=== PATIENT | male | born 1990 | race Caucasian/White ===

== ENCOUNTER 2023-01-24 11:17 | Emergency (ER) | payer BC, OTHER ==
[~2023-01-24] VITALS: Ht 185.4 cm; Wt 66.5 kg
[2023-01-24] MEDS ORDERED: IBUPROFEN200 M1 PO (11:33)
[2023-01-24] MEDS ORDERED: IMITREX25 MG PO (11:34)
[2023-01-24] MEDS ORDERED: ONDANSETRON ODT8 MG PO (14:37)
[2023-01-24] MEDS ORDERED: REGLAN10 MG PO (14:37)
== END 2023-01-24 14:55 | disposition home or self-care (01) ==
LOC: ED 11:17
DX: G43.909 Migraine, unspecified, not intractable, without status migrainosus (principal); Z79.899 Other long term (current) drug therapy
CPT/HCPCS: 96361; 96374; 96375; 99283-25; J1100; J1200; J1790; J1885; J2405; J7040

== ENCOUNTER 2024-05-08 13:14 | Emergency (ER) | payer BC, OTHER ==
[~2024-05-08] VITALS: Ht 185.4 cm; Wt 65.2 kg
[~2024-05-08 13:14] MED LIST: IBUPROFEN200 M1 PO; IMITREX25 MG PO; ONDANSETRON ODT8 MG PO; REGLAN10 MG PO
[2024-05-08] MEDS ORDERED: HYDROXYZINE HCL25 MG PO (14:22)
[2024-05-08] MEDS ORDERED: DULOXETINE HCL30 MG PO (14:23)
[2024-05-08] MEDS ORDERED: ondansetron HCL 4 MG/2 ML VIAL IV ONE (15:15)
[2024-05-08] MEDS ORDERED: DEXAMETHASONE SOD PHOS 10 MG/ML VIAL IV ONE (15:15)
[2024-05-08] MEDS ORDERED: SODIUM CHLORIDE 0.9% 1,000 ML IV ONE (15:15)
[2024-05-08] MEDS ORDERED: LORazepam 2 MG/ML VIAL IV ONE (15:15)
[2024-05-08] MEDS ORDERED: diphenhydrAMINE HCL 50 MG/ML VIAL IV ONE (15:15)
[2024-05-08] MEDS ORDERED: KETOROLAC TROMETHAMINE 30 MG/ML VIAL IV ONE (15:15)
[2024-05-08 15:39] LABS: BASOPHILS 0.5 % (0-2); EOSINOPHILS 0.4 % (0-6); HEMATOCRIT 46.2 % (35.0-50.0); HEMOGLOBIN 15.7 g/dL (12.0-18.0); LYMPHOCYTES 30.4 % (24-44); MCHC 33.9 g/dl (30-36); MCV 91.4 fl (81-99); MONOCYTES 10.2 % (0-12); NEUTROPHILS 58.5 % (39-80); PLATELET COUNT 201 K/uL (140-440); RBC 5.05 M/ul (4.3-5.7); RDW 13.2 (10.5-15.0)
[2024-05-08 15:57] LABS: ALBUMIN 4.5 g/dL (3.4-5.0); ALBUMIN/GLOBULIN RATIO 1.18 (1.1-2.4); ANION GAP 9.9 (7-21); BILIRUBIN, TOTAL 0.6 ng/dL (0.2-1.0); BUN/CREATININE RATIO 18.09 (6.0-28.6); CALCIUM 9.5 mg/dL (8.5-10.1); CREATININE, SERUM 1.05 mg/dL (0.70-1.30); POTASSIUM 3.9 mmol/L (3.5-5.1); PROTEIN, TOTAL 8.3 g/dL (6.4-8.2)
[2024-05-08] MEDS ORDERED: IMITREX100 MG PO (16:44)
[2024-05-08] MEDS ORDERED: ONDANSETRON HCL8 MG PO (16:44)
[2024-05-08 16:56] VITALS: BP 116/83
== END 2024-05-08 16:56 | disposition home or self-care (01) ==
LOC: ED 13:14
PROVIDERS: Emergency Medicine
DX: G43.909 Migraine, unspecified, not intractable, without status migrainosus (principal); Z88.8 Allergy status to other drugs, medicaments and biological substances; Z79.899 Other long term (current) drug therapy
CPT/HCPCS: 36415; 80053; 85025; 96361; 96374; 96375; 99284-25; J1100; J1200; J1885; J2060; J2405; J7030

== ENCOUNTER 2025-02-03 17:32 | Emergency (ER) | payer BC, OTHER ==
[~2025-02-03] VITALS: Ht 185.4 cm; Wt 68.4 kg
[~2025-02-03 17:32] MED LIST changes: +AIMOVIG AU70 MG/1 ML SQ; +DULOXETINE HCL30 MG PO; +HYDROXYZINE HCL25 MG PO; +IMITREX100 MG PO; +ONDANSETRON HCL8 MG PO; +ONDANSETRON ODT8 MG SL
[2025-02-03] MEDS ORDERED: SUMATRIPTAN SUC50 MG PO (21:32)
[2025-02-03 22:07] VITALS: BP 121/87
== END 2025-02-03 22:00 | disposition home or self-care (01) ==
LOC: ED 17:32
DX: G43.909 Migraine, unspecified, not intractable, without status migrainosus (principal); Z88.5 Allergy status to narcotic agent; Z88.8 Allergy status to other drugs, medicaments and biological substances; Z88.9 Allergy status to unspecified drugs, medicaments and biological substances; Z88.1 Allergy status to other antibiotic agents
CPT/HCPCS: 99283